=== PATIENT | male | born 1960 ===

== ENCOUNTER 2017-10-19 09:42 | Emergency (ER) | payer MEDICARE, OTHER ==
[2017-10-19 10:18] VITALS: BP 135/66
--- NOTE | 2017-10-19 11:22 | UC ---
Skin Complaint HPI - HPI Summary HPI Summary: 57-year-old male chief complaints of right arm redness and swelling in the foRARM. Started 5 days ago as a small red bump. The size has increased and started draining serous fluid. It is tender to palpation. There is redness around the ridge. No fevers or chills feels well otherwise. No known trauma. - History of Current Complaint Chief Complaint: UCSkin Time Seen by Provider: 10/19/17 10:56 Stated Complaint: RIGHT ARM SKIN COMPLAINT Pain Intensity: 5 - Allergy/Home Medications Allergies/Adverse Reactions: Allergies Allergy/AdvReac Type Severity Reaction Status Date / Time No Known Allergies Allergy Verified 10/19/17 10:08 Home Medications: Home Medications Baclofen TAB* [Lioresal TAB*] 10 mg PO TID 10/19/17 [History Confirmed 10/19/17] Lisinopril TAB* [Prinivil TAB*] 10 mg PO BID 10/19/17 [History Confirmed ] Methadone TAB* [Dolophine TAB*] 10 mg PO Q6H PRN 10/19/17 [History Confirmed 05/03] Metoprolol Tartrate TAB* [Lopressor TAB*] 100 mg PO DAILY 10/19/17 [History Confirmed 10/19/17] Oxycodone HCl [Roxicodone] 15 mg PO Q4H PRN 10/19/17 [History Confirmed 10/19/17 ] Oxycodone HCl [Roxybond] 30 mg PO Q4H PRN 10/19/17 [History Confirmed 10/19/17] Zolpidem TAB* [Ambien TAB*] 10 mg PO BEDTIME 10/19/17 [History Confirmed ] Review of Systems Constitutional: Negative Skin: Rash - See history of present illness Eyes: Negative ENT: Negative Respiratory: Negative Cardiovascular: Negative Neurovascular: Negative Musculoskeletal: Negative Neurological: Negative Psychological: Negative Is Patient Immunocompromised?: No All Other Systems Reviewed And Are Negative: Yes PMH/Surg Hx/FS Hx/Imm Hx Other Endocrine History: BORDERLINE DM Cardiovascular History: Hypertension - Surgical History Surgical History: Yes Surgery Procedure, Year, and Place: 3 back surgeries - Family History Known Family History: Positive: Cardiac Disease, Diabetes - Social History Alcohol Use: None Substance Use Type: Prescribed Smoking Status (MU): Heavy Every Day Tobacco Smoker Type: Cigarettes Amount Used/How Often: 1 PPD Physical Exam Triage Information Reviewed: Yes Appearance: Well-Appearing Vital Signs: Initial Vital Signs Temp 98.1 F 10/19/17 10:14 Pulse 95 10/19/17 10:14 Resp 16 10/19/17 10:14 BP 135/66 10/19/17 10:14 Pulse Ox 95 10/19/17 10:14 Vital Signs Reviewed: Yes Eye Exam: Normal ENT Exam: Normal Neck: Positive: Supple Respiratory: Positive: Lungs clear, No respiratory distress Cardiovascular Exam: Normal Musculoskeletal: Positive: Strength Intact Neurological Exam: Normal Psychological Exam: Normal Skin: Positive: Other - Right forearm has an erythematous swelling beds open in the middle with serous drainage 6 cm in diameter for some erythema there is no streaking there's no obvious fluctuance for incision and drainage Course/Dx - Course Course Of Treatment: No history of MRSA. Cellulitis versus localized contact dermatitis. We'll treat with clindamycin and mupirocin. Follow up with his primary care doctor. Recheck sooner if worse. - Diagnoses Provider Diagnoses: RIGHT FOREARM CELLULITIS Discharge - Sign-Out/Discharge Documenting (check all that apply): Patient Departure All imaging exams completed and their final reports reviewed: No Studies - Discharge Plan Condition: Stable Disposition: HOME Prescriptions: Clindamycin Cap(NF) [Clindamycin Cap 300 mg Cap(NF)] 300 mg PO Q6H #40 cap Mupirocin 1 applic TOPICAL TID #22 gm Patient Education Materials: Cellulitis (ED) Referrals: [facility] [place] [facility] [Outside] Additional Instructions: FOLLOW UP WITH YOUR DOCTOR. GET RECHECKED FOR ANY WORSENING OF YOUR CONDITION; SPREAD OF INFECTION, FEVER, YOU FEEL ILL OR QUESTIONS OR CONCERNS. - Billing Disposition and Condition Condition: STABLE Disposition: Home
== END 2017-10-19 11:23 | disposition home or self-care (01) ==
LOC: UCCORT 09:42
DX: L03.113 Cellulitis of right upper limb (principal); I10 Essential (primary) hypertension; R73.03 Prediabetes; F17.210 Nicotine dependence, cigarettes, uncomplicated
CPT/HCPCS: 99212; G0463

== ENCOUNTER 2018-10-04 09:54 | Emergency (ER) | payer MEDICARE, OTHER ==
--- NOTE | 2018-10-04 10:22 | ED ---
Complex/Multi-Sys Presentation - HPI Summary HPI Summary: This patient is a 58 year old M presenting to [facility] with a chief complaint of severe left elbow pain since 00:00 on 10/04/18. Pt says the elbow pain is from an old injury. Pt also reports lower back pain (had 3 back surgeries). Pt goes to Dr. Don for pain management, and Dr. Don has been lowering pts dosage of oxycodone. Pt was taking 8 oxycodone tablets per day, and Dr. Don cut it down to 7 per day. However, Pt continued taking 8 per day and has run out. Pt did not take oxycodone today. Pt also has not taken Medrol for pain today. Patient reports diaphoresis, body aches, and nasal discharge. Patient denies N/V, abdominal pain. Dr. Don sent pt to ED from his office. Per triage, the patient rates the pain 16/10 in severity. - History Of Current Complaint Chief Complaint: EDGeneral Time Seen by Provider: 10/04/18 10:02 Hx Obtained From: Patient Onset/Duration: Lasting Hours, Still Present Timing: Constant Severity Currently: Severe Severity Initially: Severe Location: Pain At: - left elbow Aggravating Factor(s): Nothing Alleviating Factor(s): Narcotics Associated Signs And Symptoms: Positive: Diaphoresis, Other - pos : nasal discharge, body aches. Negative: Nausea, Vomiting, Abdominal Pain - Allergies/Home Medications Allergies/Adverse Reactions: Allergies Allergy/AdvReac Type Severity Reaction Status Date / Time No Known Allergies Allergy Verified 10/19/17 10:08 PMH/Surg Hx/FS Hx/Imm Hx Endocrine/Hematology History: Comment Only: Hx Diabetes - boarderline Cardiovascular History: Reports: Hx Hypertension EENT History: Denies: Hx Deafness - Surgical History Surgery Procedure, Year, and Place: 3 back surgeries Infectious Disease History: No Infectious Disease History: Denies: Traveled Outside the [place] in Last 30 Days - Family History Known Family History: Positive: Cardiac Disease, Diabetes - Social History Occupation: Disabled Alcohol Use: None Substance Use Type: Reports: Prescribed Hx Tobacco Use: Yes Smoking Status (MU): Heavy Every Day Tobacco Smoker Type: Cigarettes Amount Used/How Often: 1 PPD Review of Systems Positive: Skin Diaphoresis Positive: Nasal Discharge Negative: Abdominal Pain, Vomiting, Nausea Positive: Other - pos : pain left elbow, lower back pain All Other Systems Reviewed And Are Negative: Yes Physical Exam - Summary Physical Exam Summary: Appearance: The patient is well-nourished. Pt is diaphoretic, irritable and restless Skin: The skin is warm and dry and skin color reflects adequate perfusion. HEENT: The head is normocephalic and atraumatic. The pupils are equal and reactive. The conjunctivae are clear and without drainage. Nasal stuffiness. Mouth reveals moist mucous membranes and the throat is without erythema and exudate. The external ears are intact. The ear canals are patent and without drainage. The tympanic membranes are intact. Neck: The neck is supple with full range of motion and non-tender. There are no carotid bruits. There is no neck vein distension. Respiratory: Chest is non-tender. Lungs are clear to auscultation and breath sounds are symmetrical and equal. Cardiovascular: Heart is regular rate and rhythm. There is no murmur or rub auscultated. There is no peripheral edema and pulses are symmetrical and equal. Abdomen: The abdomen is soft and non-tender. There are normal bowel sounds heard in all four quadrants and there is no organomegaly palpated. Musculoskeletal: There is no back tenderness noted. Extremities are non-tender with full range of motion. There is good capillary refill. There is no peripheral edema or calf tenderness elicited. Neurological: Patient is alert and oriented to person, place and time. The patient has symmetrical motor strength in all four extremities. Cranial nerves are grossly intact. Deep tendon reflexes are symmetrical and equal in all four extremities. Psychiatric: The patient has an appropriate affect and does not exhibit any anxiety or depression. Clinical Opiate Withdrawal Score is 20 Triage Information Reviewed: Yes Vital Signs On Initial Exam: Initial Vitals Pulse BP Pulse Ox 99 172/129 96 10/04/18 09:58 10/04/18 09:58 10/04/18 09:58 Vital Signs Reviewed: Yes Diagnostics - Vital Signs Vital Signs Temp Pulse Resp BP Pulse Ox 10/04/18 10:00 97.8 F 73 19 172/129 97 10/04/18 09:59 91 98 10/04/18 09:58 99 172/129 96 - Laboratory Result Diagrams: 10/04/18 10:45 10/04/18 10:45 Lab Statement: Any lab studies that have been ordered have been reviewed, and results considered in the medical decision making process. Re-Evaluation - Re-Evaluation First Eval Re-Evaluation Time: 15:04 Comment: Checked in on pt. Complex Multi-Symp Course/Dx Course Of Treatment: Mr. Ramos presented complaining of severe pain in his left elbow. An attempt was made by Dr. Don to wean him down on his very significant narcotic use. The patient tells me that he gets pain in his left elbow any time he does not take his pain medications and that this is not unusual. He is very upset on arrival and his COWS is at least 20. I [address] with [address] Don who is okay with the patient maintaining on narcotics but was mostly concerned that this elbow may represent infection because of the undue pain in it. The patient was given IV Dilaudid while labs were checked and he did have a very mild leukocytosis that is nonspecific. He gradually improved and I switched him over to his normal by mouth oxycodone and methadone. It took a long time but he gradually became more of his normal self and was able to reassure me that the left elbow pain was consistent with what happens when he does not get his pain medication. He went home with his brother and I recommended he follow-up with Dr. Don. I gave him a prescription for his pain medicines till tomorrow - Diagnoses Provider Diagnoses: Opioid withdrawal - Physician Notifications Discussed Care Of Patient With: Devon Don Time Discussed With Above Provider: 10:29 Instructed by Provider To: Other - Discussed case with Dr. Don, who is fine with giving pt narcotics. Discharge - Sign-Out/Discharge Documenting (check all that apply): Patient Departure Patient Received Moderate/Deep Sedation with Procedure: No - Discharge Plan Condition: Stable Disposition: HOME Prescriptions: Methadone TAB* [Dolophine TAB*] 10 mg PO Q6H #3 tab MDD 3 Oxycodone HCl [Roxicodone] 30 mg PO Q4HR #7 tablet MDD 5 Patient Education Materials: Opioid Withdrawal (ED) Referrals: [facility] [Outside] Additional Instructions: Follow up with Primary Care Provider within 2-3 days. RETURN TO THE ED FOR ANY NEW OR WORSENING SYMPTOMS. - Billing Disposition and Condition Condition: STABLE Disposition: Home - Attestation Statements Document Initiated by Scribe: Yes Documenting Scribe: Chata Morgan Provider For Whom Scribe is Documenting (Include Credential): Dr. Leland Zapata MD Scribe Attestation: I, Chata Morgan, scribed for Dr. Leland Zapata MD on 10/04/18 at 1837. Scribe Documentation Reviewed: Yes Provider Attestation: The documentation as recorded by the scribe, Chata Morgan accurately reflects the service I personally performed and the decisions made by me, Dr. Leland Zapata MD Status of Scribe Document: Viewed
[2018-10-04] MEDS ORDERED: HYDROmorphone INJ1* 1 MG/ML SYRINGE IV SLOW PU ONE ×2 (10:30→11:13)
[2018-10-04 10:59] LABS: ABS Basophils 0.1 10^3/ul (0-0.2); ABS Lymphocytes 1.7 10^3/ul (1.0-4.8); ABS Neutrophils 10.6 10^3/ul (1.5-7.7); Hematocrit 48 % (42-52); Hemoglobin 16.5 g/dL (14.0-18.0); Lymphocyte % 12.9 %; Mean Corpuscular HGB Conc 34 g/dL (31-36); Mean Corpuscular Hemoglobin 30 pg (27-31); Mean Corpuscular Volume 88 fL (80-94); Mean Platelet Volume 7.9 fL (7.4-10.4); Nucleated Red Blood Cells % 0.1; Platelet Count 272 10^3/uL (150-450); Red Blood Count 5.51 10^6 /uL (4.18-5.48); Red Cell Distribution Width 14 % (10-15); White Blood Count 13.4 10^3/uL (3.5-10.8)
[2018-10-04 11:26] LABS: Albumin 4.3 g/dL (3.2-5.2); Albumin/Globulin Ratio 1.6 (1-3); BUN/Creatinine Ratio 28.8 (8-20); C Reactive Protein 3.83 mg/L (<8.01); Calcium 9.7 mg/dL (8.6-10.3); EGFR African American 133.1 (>60); Globulin 2.7 g/dL (2-4); Potassium 3.9 mmol/L (3.5-5.0); Total Bilirubin 0.8 mg/dL (0.2-1.0)
[2018-10-04] MEDS ORDERED: oxyCODONE TAB* 5 MG TAB PO ONE ×2 (13:22→15:22)
[2018-10-04] MEDS ORDERED: Methadone TAB* 10 MG PO ONE (15:07)
[2018-10-04] MEDS ORDERED: oxyCODONE SR TAB(*) 15 MG TAB.SR PO ONE (15:16)
[2018-10-04 16:32] VITALS: BP 152/97
== END 2018-10-04 16:31 | disposition home or self-care (01) ==
LOC: ED 09:54
DX: F11.23 Opioid dependence with withdrawal (principal); I10 Essential (primary) hypertension; F17.210 Nicotine dependence, cigarettes, uncomplicated
CPT/HCPCS: 36415; 80053; 85025; 86140; 96374; 96376; 99284; A9270-GY; J1170